=== PATIENT | female | born 1975 | race American Indian/Alaskan Native ===

== ENCOUNTER 2017-09-02 04:28 | Emergency (ER) | payer MEDICAID ==
--- NOTE | 2017-09-02 05:10 | EDM.PDOC ---
ED HPI GENERAL MEDICAL PROBLEM - General Chief Complaint: General Stated Complaint: CHEST PAIN Time Seen by Provider: 09/02/17 04:40 Source of Information: Reports: Patient History Limitations: Reports: No Limitations - History of Present Illness INITIAL COMMENTS - FREE TEXT/NARRATIVE: According to patient she has been having chest pain since yesterday afternoon. Pain is over the upper chest and is over both sides of the chest. PAin is constant and rates around 4-5/10. No change in pain with deep breathing or chest pressure. No radiation of pain. No fever or chills. No nausea or vomiting. No diaphoresis. Pain does not get worse with exertion. No cough or wheezing. No URI symptoms. Onset Date: 09/01/17 Onset Time: 12:00 Duration: Constant Location: Reports: Chest Quality: Reports: Ache Severity: Moderate Improves with: Reports: None Worsens with: Reports: None Associated Symptoms: Reports: Chest Pain. 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: - Past Surgical History GI Surgical History: Reports: Appendectomy Female Surgical History: Reports: Section, Tubal Ligation Social & Family History - Tobacco Use Smoking Status *Q: Current Some Day Smoker Years of Tobacco use: 5 Packs/Tins Daily: 0.5 Used Tobacco, but Quit: No Second Hand Smoke Exposure: No - Caffeine Use Caffeine Use: Reports: None - Alcohol Use Days Per Week of Alcohol Use: 0 - Recreational Drug Use Recreational Drug Use: Yes Drug Use in Last 12 Months: Yes Recreational Drug Type: Reports: Marijuana/Hashish Recreational Drug Use Frequency: Weekly ED ROS GENERAL - Review of Systems Review Of Systems: See Below Constitutional: Denies: Fever, Chills, Weakness, Night Sweats, Diaphoresis HEENT: Denies: Rhinitis, Sinus Problem, Throat Pain Respiratory: Denies: Shortness of Breath, Wheezing, Pleuritic Chest Pain, Cough , Sputum Cardiovascular: Reports: Chest Pain. Denies: Lightheadedness GI/Abdominal: Denies: Abdominal Pain, Constipation, Diarrhea, Nausea, Vomiting : Denies: Dysuria, Flank Pain, Urgency, Urinary Retention Musculoskeletal: Denies: Joint Pain, Joint Swelling Skin: Denies: Bruising, Pruritis, Rash, Erythema Neurological: Denies: Confusion, Dizziness, Seizure, Syncope ED EXAM, GENERAL - Physical Exam Exam: See Below Exam Limited By: No Limitations General Appearance: Alert, WD/WN, No Apparent Distress Eye Exam: Bilateral Eye: EOMI, PERRL Ears: Normal External Exam, Normal Canal, Hearing Grossly Normal, Normal TMs Ear Exam: Bilateral Ear: Auricle Normal, Canal Normal, TM normal Nose: Normal Inspection, Normal Mucosa, No Blood Throat/Mouth: Normal Inspection, Normal Lips, Normal Teeth, Normal Gums, Normal Oropharynx, Normal Voice, No Airway Compromise Head: Atraumatic, Normocephalic Neck: Normal Inspection, Supple, Non-Tender, Full Range of Motion Respiratory/Chest: No Respiratory Distress, Lungs Clear, Normal Breath Sounds, No Accessory Muscle Use, Chest Non-Tender Cardiovascular: Normal Peripheral Pulses, Regular Rate, Rhythm, No Edema, No Gallop, No JVD, No Murmur, No Rub GI/Abdominal: Normal Bowel Sounds, Soft, Non-Tender, No Organomegaly, No Distention, No Abnormal Bruit, No Mass Extremities: Normal Inspection, Normal Range of Motion, Non-Tender, Normal Capillary Refill, No Pedal Edema Neurological: Alert, Oriented, CN II-XII Intact, Normal Cognition, Normal Gait, Normal Reflexes, No Motor/Sensory Deficits Skin Exam: Warm, Intact EKG INTERPRETATION EKG Date: 09/02/17 Rhythm: NSR [place]: Normal P-Wave: Present QRS: Normal ST-T: Normal QT: Normal Course - Vital Signs Text/Narrative:: Pt has dull achy chest pain all over the chest since yesterday noon. It does not get worse with exertion. Pain does not get worse with deep breathing or chest palpation. Clinical exam is normal.Her EKG, CBC, troponin are normal.Renal functions are normal. Her LFT shows elevated AST and ALT mildly. It does appear like nonspecific chest pain. Advised naprosyn 500mg 2 times daily as needed for pain. If symptoms persists and also to do further workup on her elevated LFT advised to followup in Clinic tomorrow. If symptoms worsen or deteriorate advied to return to emergency room. Last Recorded V/S: Last Vital Signs Temp 95.9 F 09/02/17 04:36 Pulse 90 09/02/17 05:16 Resp 20 09/02/17 04:49 BP 137/92 H 09/02/17 05:16 Pulse Ox 98 09/02/17 04:49 - Orders/Labs/Meds Orders: Active Orders 24 hr Category Date Time Status EKG Documentation Completion [RC] ASDIRECTED Care 09/02/17 05:04 Active EKG 12 Lead [EK] Routine Ther 09/02/17 05:04 Ordered Labs: Laboratory Tests 09/02/17 09/02/17 Range/Units 05:30 05:30 WBC 5.8 (4.0-11.0) K/uL RBC 4.06 (3.80-5.80) M/uL Hgb 13.4 (11.5-16.5) g/dL Hct 38.5 (37.0-47.0) % MCV 95 (76-96) fL MCH 33.0 H (27.0-32.0) pg MCHC 34.8 (31.0-35.0) g/dL RDW 12.7 (11.0-16.0) % Plt Count 219 (150-500) K/uL MPV 9.5 (6.0-10.0) fL Neut % (Auto) 47.0 (45.0-70.0) % Lymph % (Auto) 43.1 H (20.0-40.0) % [place] % (Auto) 7.1 (3.0-10.0) % Eos % (Auto) 2.6 (1.0-5.0) % Baso % (Auto) 0.2 (0.0-0.5) % Neut # (Auto) 2.71 (2.00-7.50) K/uL Lymph # (Auto) 2.48 (1.50-4.00) K/uL [place] # (Auto) 0.41 (0.20-0.80) K/uL Eos # (Auto) 0.15 (0.04-0.40) K/uL Baso # (Auto) 0.01 L (0.02-0.10) K/uL Sodium 139 (136-145) mmol/L Potassium 3.3 L D (3.5-5.1) mmol/L Chloride 103 (98-107) mmol/L Carbon Dioxide 23.4 (21.0-32.0) mmol/L Anion Gap 15.9 H (5.0-15.0) mmol/L BUN 6 L D (8-26) mg/dL Creatinine 0.68 (0.55-1.02) mg/dL Est Cr Clr Drug Dosing 96.98 mL/min Estimated GFR (MDRD) > 60 (>60) MLS/MIN BUN/Creatinine Ratio 8.8 (6-25) Glucose 144 H D (74-100) mg/dL Calcium 7.9 L (8.5-10.1) mg/dL Total Bilirubin 1.3 H D (0.0-1.0) mg/dL AST 81 H (15-37) U/L ALT 131 H (12-78) U/L Alkaline Phosphatase 94 (46-116) U/L Troponin I < 0.017 (0.000-0.060) ng/mL Total Protein 8.0 (6.4-8.2) g/dL Albumin 3.5 (3.4-5.0) g/dL Globulin 4.5 H (2.2-4.2) g/dL Albumin/Globulin Ratio 0.8 (0.8-2.0) Departure - Departure Time of Disposition: 06:10 Disposition: Home, Self-Care 01 Condition: Fair Clinical Impression: Chest pain - Discharge Information Instructions: Nonspecific Chest Pain, [id number] Referrals: PCP,None [Primary Care Provider] - Forms: ED Department Discharge Additional Instructions: May take ibuprofen or Tylenol according to package instructions every 6-8 hours as needed for pain. Activity and diet as tolerated. Should symptoms continue or worsen, return to be seen. Follow up in clinic as needed. Call with any questions. - Problem List & Annotations (1) Chest pain SNOMED Code(s): 63167191 Code(s): R07.9 - CHEST PAIN, UNSPECIFIED Status: Acute Current Visit: Yes - Problem List Review Problem List Initiated/Reviewed/Updated: Yes - My Orders Last 24 Hours: My Active Orders 09/02/17 05:04 EKG Documentation Completion [RC] ASDIRECTED EKG 12 Lead [EK] Routine - Assessment/Plan Last 24 Hours: My Active Orders 09/02/17 05:04 EKG Documentation Completion [RC] ASDIRECTED EKG 12 Lead [EK] Routine Assessment:: Chest pain NOS Plan: Pt has dull achy chest pain all over the chest since yesterday noon. It does not get worse with exertion. Pain does not get worse with deep breathing or chest palpation. Clinical exam is normal.Her EKG, CBC, troponin are normal.Renal functions are normal. Her LFT shows elevated AST and ALT mildly. It does appear like nonspecific chest pain. Advised naprosyn 500mg 2 times daily as needed for pain. If symptoms persists and also to do further workup on her elevated LFT advised to followup in Clinic tomorrow. If symptoms worsen or deteriorate advied to return to emergency room.
[2017-09-02 05:16] VITALS: BP 137/92
== END 2017-09-02 06:10 | disposition home or self-care (01) ==
LOC: LB.ED 04:28
DX: R07.9 Chest pain, unspecified (principal); F17.210 Nicotine dependence, cigarettes, uncomplicated; I10 Essential (primary) hypertension; Z91.09 Other allergy status, other than to drugs and biological substances
CPT/HCPCS: 36415; 80053; 84484; 85025; 93005; 99284; 99285-25

== ENCOUNTER 2021-05-06 16:49 | Emergency (ER) | payer BC, MEDICAID ==
[2021-05-06] MEDS ORDERED: Acetaminophen/HYDROcodone 325-5 MG Tab ONE (17:00)
[2021-05-06 17:04] VITALS: BP 148/96; PULSE 75
--- NOTE | 2021-05-06 17:55 | EDM.PDOC ---
ED HPI GENERAL MEDICAL PROBLEM - General Chief Complaint: Upper Extremity Injury/Pain Stated Complaint: left arm injury Time Seen by Provider: 05/06/21 17:00 - History of Present Illness INITIAL COMMENTS - FREE TEXT/NARRATIVE: Pt is here with C/O falling on ice at work and injuring her left hand, wrist and arm to the elbow. She say she doesn't want to move her arm due to pain. There was no bleeding. No other injuries. 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 Musculoskeletal: Reports: Other (left hand, wrist and elbow injury.) ED EXAM, GENERAL - Physical Exam Exam: See Below General Appearance: Other (She is holding her left arm across her precious in a gaurded position.) Extremities: Other (she has swelling at the wrist area. Skin is intact. mild tenderness at the elbow with light palpation. Radial pulse is present. Good co kamilah of the hand, and fingers.) Course - Vital Signs Last Recorded V/S: Last Vital Signs Temp 98.3 F 05/06/21 16:59 Pulse 75 05/06/21 16:59 Resp 16 05/06/21 16:59 BP 148/96 H 05/06/21 16:59 Pulse Ox 100 05/06/21 16:59 - Orders/Labs/Meds Orders: Active Orders 24 hr Category Date Time Status Elbow Min 3V Lt [CR] Stat Exams 05/06/21 16:58 Taken Hand Comp Min 3V Lt [CR] Stat Exams 05/06/21 16:58 Taken - Radiology Interpretation Free Text/Narrative:: x-rays of the hand, wrist, and elbow reveal a DISTAL RADIAL FRACTURE WITH INTRA- ARTICULAR involvement. I do not see any other acute bony abnormalities. - Re-Assessments/Exams Free Text/Narrative Re-Assessment/Exam: 05/06/21 17:53 She was put in a gutter splint, with an GUILHERME wrap. RICE therapy discussed with pt. Jim given for pain control - use prn. She needs to follow up in the clinic Saturday for re check, and possibly an Ortho consult. I did try calling Ortho today, but was told they were busy for awhile. Departure - Departure Time of Disposition: 17:30 Disposition: Home, Self-Care 01 Condition: Good Clinical Impression: Closed fracture of radius Qualifiers: Encounter type: initial encounter Radius location: distal Fracture morphology: other intra-articular Laterality: left Qualified Code(s): S52.572A - Other intraarticular fracture of lower end of left radius, initial encounter for closed fracture - Discharge Information *PRESCRIPTION DRUG MONITORING PROGRAM REVIEWED*: No *COPY OF PRESCRIPTION DRUG MONITORING REPORT IN PATIENT BASSAM: No Instructions: Acetaminophen; Hydrocodone tablets or capsules Forms: ED Department Discharge Additional Instructions: Call Clinic to make an appt. to be seen for referral or consult with Orthopedics. Keep elevated and Ice as needed Wear sling for comfort. Take pain medication as prescribed. Sepsis Event Note (ED) - Evaluation Sepsis Screening Result: No Definite Risk - Focused Exam Vital Signs: Vital Signs Temp Pulse Resp BP Pulse Ox 05/06/21 16:59 98.3 F 75 16 148/96 H 100 - My Orders Last 24 Hours: My Active Orders 05/06/21 16:58 Elbow Min 3V Lt [CR] Stat Hand Comp Min 3V Lt [CR] Stat - Assessment/Plan Last 24 Hours: My Active Orders 05/06/21 16:58 Elbow Min 3V Lt [CR] Stat Hand Comp Min 3V Lt [CR] Stat
--- NOTE | 2021-05-07 15:05 | CR ---
DATE OF SERVICE: 05/06/21. CLINICAL DATA: Fall on ice LEFT HAND: No priors. There is soft tissue swelling dorsal to the distal forearm and wrist. There is a mildly displaced, comminuted, intraarticular fracture through the distal radius. No other acute abnormalities. [id number] [facility]
--- NOTE | 2021-05-07 15:08 | CR ---
DATE OF SERVICE: 05/06/21 CLINICAL DATA: Fall on ice. LEFT ELBOW: No acute fracture or dislocation. No lytic or blastic bone lesions. The lateral view is not adequately positioned to exclude or confirm joint effusion. [id number] [facility]
== END 2021-05-06 17:45 | disposition home or self-care (01) ==
LOC: LB.ED 16:49
DX: S52.572A Other intraarticular fracture of lower end of left radius, initial encounter for closed fracture (principal); I10 Essential (primary) hypertension; Z91.013 Allergy to seafood; Z91.09 Other allergy status, other than to drugs and biological substances; Z79.899 Other long term (current) drug therapy; W00.9XXA Unspecified fall due to ice and snow, initial encounter; Y99.0 Civilian activity done for income or pay
CPT/HCPCS: 29125; 73080-LT; 73130-LT; 99283-25; A9270-GY

== ENCOUNTER 2021-07-10 23:19 | Emergency (ER) | payer BC, MEDICAID ==
[2021-07-11 01:34] VITALS: BP 129/76; PULSE 86
== END 2021-07-11 00:42 | disposition home or self-care (01) ==
LOC: LB.ED 23:19
DX: S52.571G Other intraarticular fracture of lower end of right radius, subsequent encounter for closed fracture with delayed healing (principal); I10 Essential (primary) hypertension; Z79.899 Other long term (current) drug therapy; Z91.013 Allergy to seafood; Z91.048 Other nonmedicinal substance allergy status; W18.30XD Fall on same level, unspecified, subsequent encounter
CPT/HCPCS: 29125; 99283-25